=== PATIENT | male | born 1960 | race Caucasian/White ===

== ENCOUNTER 2020-07-14 16:45 | Emergency (ER) | payer OTHER, SELFPAY ==
[2020-07-14 16:50] VITALS: BP 126/81; PULSE 82; RESP 20; TEMP 36.7; O2SAT 99
--- NOTE | 2020-07-14 17:15 | ED.UPPEXIN ---
HPI - Extremity Injury (Upper) General Chief Complaint: Extremity Injury, Upper Stated Complaint: right hand swollen/sores Source: patient Mode of arrival: ambulatory Limitations: no limitations History of Present Illness HPI narrative: Patient is a 59-year-old male who presents with swelling and pain to right hand. He reports hitting hand on cactus approximately 2 to 3 days ago and increased pain and swelling since. He reports cleaning initial wound well with peroxide and Neosporin but reports increased pain and swelling over the past day. He denies other injuries. He denies using other [id number] medications for symptom relief. complaint: injury to: left and hand Related Data Allergies Allergy/AdvReac Type Severity Reaction Status Date / Time No Known Allergies Allergy Verified 07/14/20 17:33 Review of Systems Review of Systems: Narrative: CONSTITUTIONAL: Denies fever, chills, or sweats. EYES: Denies visual changes, redness, or discharge. ENT: Denies rhinorrhea, congestion, sore throat, or otalgia. CARDIOVASCULAR: Denies chest pain, palpitations, or edema. RESPIRATORY: Denies cough or dyspnea. GASTROINTESTINAL: Denies abdominal pain, nausea, vomiting, or diarrhea. GENITOURINARY: Denies dysuria or hematuria. SKIN: Redness and swelling to right thenar palm MUSCULOSKELETAL: Denies back pain, joint pain, or myalgia. NEUROLOGIC: Denies headache, numbness, dizziness, or weakness. PSYCHIATRIC: Denies anxiety or depression. PMFSH Past Medical History Medical History (Updated 07/14/20 @ 17:26 by ARPITA Seth) Diverticulitis Hepatitis Surgical History Surgical History (Updated 07/14/20 @ 17:21 by ARPITA Seth) No significant past surgical history Family History Family History (Updated 07/14/20 @ 17:21 by ARPITA Seth) Other Heart disease Lung cancer Social History Social History (Updated 07/14/20 @ 17:21 by ARPITA Seth) Smoking status: Current every day smoker Alcohol intake: current Substance use: never Living arrangements: with family Exam Narrative: Exam Narrative: GENERAL: Well-appearing, well-nourished, and in no acute distress. HEAD: Normocephalic, atraumatic. EYES: Conjunctiva are normal. ENT: Mucous membranes pink and moist. CHEST: No respiratory distress. EXTREMITIES: Normal range of motion. No edema. SKIN: Erythema, edema and abscess to right thenar space, good capillary refill, distal sensation intact NEURO: No focal deficits. Alert and oriented x3. Gait steady. PSYCH: Normal affect. No signs of depression or anxiety. Course Vital Signs Vital signs: Vital Signs Temperature 36.7 C 07/14/20 16:50 Pulse Rate 82 07/14/20 16:50 Respiratory Rate 20 07/14/20 16:50 Blood Pressure 126/81 07/14/20 16:50 Pulse Oximetry 99 07/14/20 16:50 Temperature 36.7 C 07/14/20 16:50 Pulse Rate 82 07/14/20 16:50 Respiratory Rate 20 07/14/20 16:50 Blood Pressure 126/81 07/14/20 16:50 Pulse Oximetry 99 07/14/20 16:50 Reviewed. Patient has been instructed to follow-up with his PCP regarding his blood pressure. Procedures Abscess I/D hand: Date of Incision: 07/14/20 Time of Incision: 17:23 Side (if applicable): right Local Anesthetic: lidocaine 1% Technique: needle aspiration Amount of fluid expressed (mL): 8 Irrigation: Yes Packing used?: none I&D Results: Pus Abcess I&D Additional Comments: Abscess drained approximately 8-10 mils of purulent drainage from right hand. Dressing applied. Patient instructed on wound care and antibiotics. MDM - Extremity Injury (Upper) MDM Narrative Medical decision making narrative: Patient has large abscess that was incised and drained along with cellulitis to right hand. Discussed with patient care of abscess as well as medication compliance with antibiotics. Patient to follow-up with Dr. Flores for further evaluati
== END 2020-07-14 17:45 | disposition home or self-care (01) ==
PROVIDERS: Emergency Provider Nurse Practitioner
DX: L02.511 Cutaneous abscess of right hand (principal); F17.200 Nicotine dependence, unspecified, uncomplicated
CPT/HCPCS: 10160; 87070; 87077; 87205; 99213; G0463